=== PATIENT | male | born 1965 | race Caucasian/White ===

== ENCOUNTER 2020-10-29 20:18 | Inpatient (IN) | payer MEDICARE, OTHER ==
[~2020-10-29] VITALS: Ht 177.8 cm; Wt 79.0 kg
[2020-10-29] MEDS ORDERED: GABAPENTIN800 MG PO (22:58)
[2020-10-29] MEDS ORDERED: QUETIAPINE FUM100 MG PO (22:59)
[2020-10-29] MEDS ORDERED: MELOXICAM7.5 MG PO (23:01)
[2020-10-29] MEDS ORDERED: BUPRENORPHINE-1 EACH SL (23:01)
[2020-10-29] MEDS ORDERED: COREG25 MG PO (23:06)
[2020-10-30 01:54] LABS: HEMOGLOBIN 12.9 gm/dl (14.0-17.5); RED BLOOD COUNT 4.45 M/UL (4.20-5.50); WHITE BLOOD COUNT 11.4 K/UL (4.5-11.0)
[2020-10-30 02:44] LABS: BUN/CREATININE RATIO 4 (0-10)
[2020-10-30] MEDS ORDERED: ZESTRIL 40 MG T40 MG PO (14:37)
[2020-10-30] MEDS ORDERED: ALPRAZOLAM1 MG PO (22:59)
[2020-10-30] MEDS ORDERED: LISINOPRIL40 MG PO (23:06)
[2020-10-31 02:55] LABS: HEMOGLOBIN 12.7 gm/dl (14.0-17.5); RED BLOOD COUNT 4.24 M/UL (4.20-5.50)
[2020-10-31 02:58] LABS: WHITE BLOOD COUNT 7.6 K/UL (4.5-11.0)
[2020-10-31 03:55] LABS: BUN/CREATININE RATIO 8 (0-10)
[2020-11-01 05:37] LABS: BUN/CREATININE RATIO 8 (0-10)
[2020-11-01] MEDS ORDERED: ATORVASTATIN CA20 MG PO (09:53)
[2020-11-01] MEDS ORDERED: ASPIRIN EC81 MG PO (09:53)
[2020-11-01] MEDS ORDERED: ISOSORBIDE MONO30 MG PO (09:53)
[2020-11-01] MEDS ORDERED: LISINOPRIL10 MG PO (09:53)
== END 2020-11-01 12:10 | disposition home or self-care (01) | DRG 287 ==
LOC: CCU 20:18 → PROG CARE 10-31 21:20
PROVIDERS: Internal Medicine; ADMIT Internal Medicine
PROC: B24BZZZ Ultrasonography of Heart with Aorta (ICD-10-PCS; 2020-10-30)
PROC: 4A023N7 Measurement of Cardiac Sampling and Pressure, Left Heart, Percutaneous Approach (ICD-10-PCS; principal; 2020-10-31)
PROC: B2111ZZ Fluoroscopy of Multiple Coronary Arteries using Low Osmolar Contrast (ICD-10-PCS; 2020-10-31)
PROC: 4A033BC Measurement of Arterial Pressure, Coronary, Percutaneous Approach (ICD-10-PCS; 2020-10-31)
DX: R00.1 Bradycardia, unspecified (principal); F11.20 Opioid dependence, uncomplicated; I25.119 Atherosclerotic heart disease of native coronary artery with unspecified angina pectoris; I10 Essential (primary) hypertension; F17.210 Nicotine dependence, cigarettes, uncomplicated; R51.9 Headache, unspecified; G62.9 Polyneuropathy, unspecified; G89.29 Other chronic pain; F41.9 Anxiety disorder, unspecified; Z82.49 Family history of ischemic heart disease and other diseases of the circulatory system; Z79.899 Other long term (current) drug therapy
CPT/HCPCS: ECHO; 36415; 80048; 80061; 80307; 82550; 82553; 83036; 83605; 83690; 83735; 84100; 84439; 84443; 84484; 85025; 85027; 93005; 93270; 93306; 99152; C1769; C1894; J0461; J1644; J1650; J2250; J3010; J7030; J7040; Q9967